=== PATIENT | male | born 1950 | race Caucasian/White ===

== ENCOUNTER 2024-04-08 14:25 | Inpatient (IN) | payer OTHER, SELFPAY ==
[2024-04-08] VITALS (27 sets, daily range): BP systolic 95–138; BP diastolic 48–69; BMI 32.2; BMI 27.7
[2024-04-08 13:11] LABS: % Basophils 0.1 % (0-2); % Immature Granulocytes 0.7 % (0-0.5); % Lymphocytes 1.4 % (20.5-51.1); % Monocytes 7.2 % (1.7-9.3); % Neutrophils 90.6 % (42.2-75.2); Absolute Immature Granulocytes 0.1 10^3/uL (0-0.05); Absolute Lymphocytes 0.3 10^3/uL (1.2-3.4); Absolute Monocytes 1.5 10^3/uL (0.1-0.6); Absolute Neutrophils 19.3 10^3/uL (1.4-6.5); Hematocrit 48.8 % (39.0-52.0); Mean Corp Hgb Conc. 32.8 g/dL (33.0-37.0); Mean Corpuscular Volume 94.6 fL (80.0-94.0); Nucleated Red Blood Cells % 0 % (-); Platelet Count 304 10^3/uL (130-400); Red Blood Cell Count 5.16 10^6/uL (4.70-6.10); Red Cell Dist. Width 12.4 % (11.5-14.5); White Blood Cell Count 21.3 10^3/uL (4.8-10.8)
--- NOTE | 2024-04-08 13:18 | ED.GENMED ---
History of Present Illness
General
Chief Complaint: Chest Pain
Source: patient and ambulance crew
Exam Limitations: none
Time Seen by Provider: 04/08/24 12:48
Nursing documentation reviewed up to this point in time: agreed with
History of Present Illness
History of Present Illness:
Late entry seen immediately upon presentation call from EMS concern for prehospital STEMI alert from local group home patient with a history of diabetes, with insulin pump apparently could not use his pump while in group home because his run with the phone,
sounds like he was placed on sliding scale blood sugars also been out of control 2 days ago had 12 episodes of nausea vomiting and chest pain with high blood sugar, today blood sugar was high had chest pain lower abdominal pain, EMS was called had
EKG which was sent to be reviewed, looks like ST segment elevations inferiorly with reciprocal ST depressions anteriorly versus a primarily posterior AK pattern no history of CAD
Past History
Past History
ED Past Medical History: IDDM
ED Past Surgical History: Other (Lower extremity stents, previously on Plavix)
Social History
Tobacco: Smoker
Alcohol: None
Drug: None
Living: care home
Employment: Not employed
Review of Systems
Review of Systems
All Other Systems: Not applicable
Constitutional: Reports fatigue
Respiratory: Reports trouble breathing
Cardiac: Reports chest pain
ABD/GI: Reports abdominal pain, nausea and vomiting
Musculoskeletal: Reports no symptoms
Neurological: Reports dizzy and weakness
Hematologic/Lymphatic: Reports no symptoms
Phy Exam
Physical Exam
Physical Exam:
Physical Exam
General: Tachypneic ill-appearing male
Neck: Dry lip
Heart: Tachycardia
Lungs: no acute respiratory distress. clear bilaterally
Abdomen: Tender in the abdomen right side
Neuro: alert and oriented. no focal neurological deficits
Skin: no rash
Psychiatric: cooperative
Extremities: no edema
Scores
Heart Score for Chest Pain Patients
STEMI patient?: Yes
Course
Orders/Labs/Results
Orders:
Orders
04/08/24 Lunch
NPO
Allow oral meds: Yes
Allow clear liquids: No
04/08/24 12:37
Electrocardiogram (*1) Urgent
Reason for Study: Chest Pain
EKG- Treatment ONCE
04/08/24 12:38
CXR Port [CR Chest Portable - 1 View] Urgent
Comment:
Reason For Exam: chest pain
Reason Study Needs to be Portable: Unable to Transport
04/08/24 12:41
B-Hydroxybutyrate Urgent
Complete Blood Count/With Diff Urgent
Comprehensive Metabolic Panel Urgent
Troponin I Urgent
04/08/24 12:44
PTT Urgent
Prothrombin Time Urgent
04/08/24 12:48
CT Abd/pelvis W Iv Cont Stat
Comment:
Reason For Exam: rlq pain stat no labs
04/08/24 13:09
Fentanyl Citrate/Pf [Sublimaze] 100 mcg .ROUTE .[facility]-MED ONE
Midazolam HCl [Versed] 2 mg .ROUTE .[facility]-MED ONE
04/08/24 13:10
Heparin 10,000 units .ROUTE .[facility]-MED ONE
04/08/24 13:16
Venous Blood Gas Urgent
%Oxygen/Room Air: ra
04/08/24 13:40
Calcium Gluconate 2,000 mg IV NOW STA
04/08/24 13:43
Insulin Human Regular [Novolin R] 10 units Syringe [Syringe Non-Pump] 0 ml IV NOW
04/08/24 13:45
0.9% Sodium Chloride 1000 ml [Nss] 1,000 ml IV PER PROTOCOL
Infusion rate in mL/kg/hr:: 1.5
Infusion rate in mL/hr:: 132
Duration of infusion (hours):: 3
Activity As Directed
Activity Level: Bedrest
Comment: refer to hemostasis device used for bedrest duration, then ambulate ad daya
Ic Engineer Procedure As Directed
Cardiac Cath Procedure: cardiac catheterization
Femoral Artery Hemostasis Method As Directed
Procedure performed:: Cardiac Catheterization
Type of femoral hemostasis method used:: Internal Closure Device
Duration of bedrest (hours):: 3
Call provider if:: hematoma present after hemostasis achieved
Head of Bed-Restrictions As Directed
Comment: may elevate head of bed 30 degrees
Notify MD As Directed
Notify physician if: immediately for chest pain or bleeding from access site(s)
Site Checks As Directed
Check access site for bleeding/hematoma: Yes
Comment: on arrival, Q15min x4, Q30min x2, Q1 hr x2, Q2 hr x2, Q4 hr or per
protocol
Vascular Checks As Directed
Location: distal to access site - pulse check
Frequency: Other
Comment: on arrival, Q15min x4, Q30min x2, Q1 hr x2, Q2 hr x2, Q4 hr or per protocol
Vital Signs As Directed
Frequency: Other
Additional Instructions:: on arrival, Q15min x4, Q30min x2, Q1 hr x2, Q2 hr x2, then Q4 hr or per unit
protocol
04/08/24 13:49
Insulin Aspart [NOVOLOG vial] 100 units .ROUTE .[facility]
04/08/24 13:50
Admit Patient As Directed
Co-Sign Provider:
Level of Care: Inpatient admission
Assign to:: ICU
Physician / Group: Hospitalist
Diagnosis: DKA
Reason for Hospitalization: DKA
Expected length of stay greater than two midnights?: Yes
ELOS- Estimated Length of Stay in days: 4
I certify the patient meets the requirements for IP care: Yes
04/08/24 13:52
HOSPITALIST CONSULT Urgent
Consulting Provider: [place]
Was physician already notified: Yes
NEPHROLOGY CONSULT Urgent
Consulting Provider: Marlen Hernandez
Was physician already notified: Yes
DX Deep Vein Thrombosis Video Routine
04/08/24 13:53
Brilliandeer Lopper Consult Urgent
Consulting Provider: Juan Martini
Was physician already notified: Yes
04/08/24 18:00
Enoxaparin Sodium [Lovenox] 40 mg SC QPM
Abnormal Lab Results
04/08/24 04/08/24
12:41 12:44
WBC 21.3 H 10^3/uL
(4.8-10.8)
MCV 94.6 H fL
(80.0-94.0)
MCHC 32.8 L g/dL
(33.0-37.0)
MPV 11.0 H fL
(7.4-10.4)
Abs Immat Gran (auto) 0.1 H 10^3/uL
(0-0.05)
Absolute Neuts (auto) 19.3 H 10^3/uL
(1.4-6.5)
Absolute Lymphs (auto) 0.3 L 10^3/uL
(1.2-3.4)
Absolute Monos (auto) 1.5 H 10^3/uL
(0.1-0.6)
Immature Gran % 0.7 H %
(0-0.5)
Neutrophils % 90.6 H %
(42.2-75.2)
Lymphocytes % 1.4 L %
(20.5-51.1)
PT 22.3 H Sec
(11.4-14.6)
APTT 36.0 H Sec
(23.4-35.0)
Sodium 125 L mmol/L
(135-145)
Potassium 7.4 H* mmol/L
(3.5-5.1)
Chloride 89 L mmol/L
(98-107)
Carbon Dioxide < 5 L* mmol/L
(22-30)
BUN 59 H mg/dl
(9-20)
Creatinine 2.9 H mg/dL
(0.7-1.3)
Glucose 810 H* mg/dl
(70-99)
Total Bilirubin 1.4 H mg/dl
(0.2-1.3)
Troponin I 0.247 H* ng/ml
B-Hydroxybutyrate > 9 H mmol/L
(0.02-0.27)
04/08/24 12:41
04/08/24 12:41
Vital Signs
Initial and Last Documented VS:
Initial Vital Signs
Pulse Resp Pulse Ox
121 18 96
04/08/24 12:40 04/08/24 12:40 04/08/24 12:40
Last Documented Vital Signs
Pulse Resp Pulse Ox
121 18 96
04/08/24 12:40 04/08/24 12:40 04/08/24 12:40
MDM/Problems Addressed
Differential Diagnosis Includes:
STEMI delayed presentation AK DKA intra-abdominal process infection
MDM/Problems Addressed:
Chest pain nausea vomiting abdominal
Chronic conditions affecting care: DM
Acute Exacerbation and/or Progression of Chronic Illness: DM
*EKG
Interpreted by ED Provider?: Yes
Interpretation: abnormal
Comparison EKG: no comparison EKG present
Heart Rate: 118
Rate: normal
Rhythm: sinus
Ischemia: ST elevation
*Draw Press Operator Interpretation
Rate: tachycardiac
Interpretation: abnormal
Heart Rate: 118
Rhythm: sinus
*Critical Care Note
Total Time (30-74mins, 75-104mins- exclusive of procedures): 30
Update Note
Update Note:
Update, CT scan report noted labs are noted patient is in the Ic Engineer, looks like DKA with hyper kalemia
ED Attending Note
-
Portions of this chart may have been created with voice recognition software.� Occasional wrong word or��sound alike� substitutions may have occurred due to the inherent limitations of voice recognition software.
Discharge Plan
Departure
Patient Disposition: Admit
Date of Disposition: 04/08/24
Time of Disposition: 13:54
Admit to: CVICU
Presentation/result/management discussed w/ accepting MD/DO: Hospitalist
Condition: Fair
Discharge Problem:
DKA
Referrals:
[facility] [Family Provider] -
Interventions
Interventions:
*Risk Screen - Suicide Last Done: 04/08/24 13:00
*General Assessment Last Done: 04/08/24 13:00
*Neglect/Abuse Screening Last Done: 04/08/24 13:00
ED- Fall Risk Assessment Last Done: 04/08/24 13:00
*ED COVID-19 Vaccine History Last Done: 04/08/24 13:00
ED- Cardiac Assessment Last Done: 04/08/24 13:00
Discharge Date and Time
Print Language: EQUATORIAL GUINEAN
[2024-04-08 13:20] LABS: INR 1.98; PT 22.3 Sec (11.4-14.6)
[2024-04-08 13:39] LABS: AST (SGOT) 43 U/L (17-59); Albumin 4.5 g/dl (3.5-5.0); Alkaline Phosphatase 112 U/L (38-126); Blood Urea Nitrogen 59 mg/dl (9-20); Carbon Dioxide < 5 mmol/L (22-30); Chloride 89 mmol/L (98-107); Estimated Creatinine Clearance 24 ml/min; Potassium 7.4 mmol/L (3.5-5.1); Sodium 125 mmol/L (135-145); Total Bilirubin 1.4 mg/dl (0.2-1.3); Total Protein 6.5 g/dl (6.3-8.2); eGFR 22.42
[2024-04-08 13:40] LABS: Troponin I 0.247 ng/ml
[2024-04-08 13:41] LABS: ALT (SGPT) 45 U/L (0-50)
[2024-04-08 13:42] LABS: Glucose 810 mg/dl (70-99)
[2024-04-08 13:50] LABS: B-Hydroxybutyrate > 9 mmol/L (0.02-0.27)
--- NOTE | 2024-04-08 14:01 | CON.CAR ---
Addendum entered and electronically signed by Hadley Fontana DO 04/08/24 14:19:
Cardiac catheterization shows no immediately occlusive CAD.
K+ = 7.4, likely source of EKG changes.
CT abdomen/pelvis shows no acute obstruction.
Ca++ 2g + insulin R 10 units given in culture media laboratory assistant.
Lokelma ordered.
Will admit to hospitalist, ICU level care.
Consult pulm/critical care.
Mcdonald catheter attempted in culture media laboratory assistant, unsuccessful.
Bladder scan for residual.
If bladder scan is positive, consider urology for catheter placement.
Original Note:
Consultation
Consultation Request
Date/Time Consultation Requested: 04/08/2024; 12:28
Date/Time Consultation Performed: 04/08/2024; 12:29
Requesting Provider: Jose Dee D.O.
Performing Provider: Hadley Fontana D.O.
Reason for Consultation: Abnormal EKG.
Medical History
-
Chief Complaint: Transfer from [facility] for chest pain, nausea, vomiting.
History of Present Illness:
Ian Delcid is a 73 y/o male prisoner without prior contact at and a history of IDDM transferred from [facility] with two days of nausea, vomiting, chest pain (two days ago) and difficulty controlling glucose in the absence of his insulin pump. The
patient was reincarcerated for a parole violation. He reports he was previously on an insulin pump, but this has been confiscated. Two days ago, he began to feel poorly, including chest pain, nausea and vomiting. He reports bradford SSI has been
inadequate in controlling his glucose and that his glucoses have been very high. He denied any consistent chest pain in the past 24 hours, then admitted to some mild chest pain 2 hours prior to presentation. Because of his persistent symptoms, EMS
was called. EMS EKG showed non-specific ST elevations in the inferior leads with deep ST depressions in the anteroseptal precordial leads, concerning for inferoposterior infarct. Labs are initially consistent with DKA.
In the ER, the patient reported worsening abdominal pain. His lower abdomen was tender to palpation. CT scan was performed which showed a distended bladder but no acute cause of his abdominal pain. Given his DKA, history of PAD and IDDM with EKG
changes, I am concerned for ACS with continued chest pain 2 hours prior to presentation.
Past Medical History
Past Medical History: IDDM and Other (PAD)
Social History
Living: [facility]
Family History
Family History: Reviewed & Not Pertinent
Allergies / Home Medications
Allergy/AdvReac Type Severity Reaction Status Date / Time
lactose Allergy Unknown Unknown Verified 04/08/24 12:40
Review of Systems
-
History Source: Patient and Other ([facility] personnel.)
Constitutional: No Symptoms
EENT: Other (Dry mouth.)
Respiratory: No Symptoms
Cardiac: Chest Pain (Occured two days prior to admission.)
Abdomen/GI: Abdominal Pain, Nausea and Vomiting
: No Symptoms
Musculoskeletal: No Symptoms
Skin: No Symptoms
Neurological: No Symptoms
Physical Exam
Vital Signs
Pulse Resp Pulse Ox
121 18 96
04/08/24 12:40 04/08/24 12:40 04/08/24 12:40
Lab Results
04/08/24 12:41
04/08/24 12:41
Troponin I 0.247 ng/ml H* 04/08/24 12:41
Physical Exam
General: Well Developed, Well Nourished and Respiratory Distress
HEENT: Normocephalic, Anicteric and Other (Dry mucous membranes.)
Respiratory: Clear
Cardiac: S1/S2 and Regular Rhythm
Breast: Deferred by me
GI: Soft, Normal Bowel Sounds, Tender and Distended (Lower, suprapubic.)
Rectal: Deferred by Provider
Musculoskeletal: No Clubbing, No Cyanosis and No Edema
Skin: Warm and Dry
Neuro: AO x 3
Hematologic/Lymphatic: No Lymphadenopathy
Impression / Plan
-
Impression/Plan: 73 y/o male prisoner with PAD, IDDM now complicated by DKA and chest pain with abnormal EKG concerning for inferoposterior STEMI.
#Abnormal EKG
-Acute.
-No prior EKG for comparison.
-Given his concerning symptoms, we must assume this is a possible ACS.
-Plan for immediate coronary angiography for clarification of coronary anatomy.
-Consent is signed an on the chart.
#IDDM/DKA
-Acute on chronic.
-Volume rescusitation.
-Insulin gtt.
-Electrolytes.
#Bladder distention
-Acute.
-Evacuate bladder.
-Urology consult if needed.
Data Reviewed
-
EKG: Tracing Personally Visualized and interpreted and Report Reviewed by me
CT Scan: Image Personally Visualized and interpreted and Report Reviewed by me
[2024-04-08 14:09] LABS: Glucose - Point of Care > 600 mg/dl (70-99)
--- NOTE | 2024-04-08 14:19 | ITS.CL.CATH ---
Textile Machinery Sales Representative - Catheterization
Cardiac Catheterization
Procedure Report:
CARDIAC CATHETERIZATION REPORT
Date of Procedure: 04/08/2024
Referring: Jose Dee D.O.
INDICATION: Possible ST elevation myocardial infarction.
PROCEDURE:
1. Left catheterization
2. Coronary angiography.
3. Left ventriculography.
ACCESS:
6 Armenian right common femoral artery using a modified Seldinger technique with a micropuncture kit under ultrasound guidance.
CATHETERS:
1. 5 Armenian JR4.
2. 5 Armenian JL 4.
3. 5 Armenian angled pigtail.
HEMODYNAMIC DATA
Weight (kg): 86.2
AO (s/d/x, mmHg): 126/59/87
LV (s/x mmHg): 140/20 (A wave to 30)
LEFT VENTRICULOGRAPHY: Performed in an MONZON projection. Normal left ventricular size with preserved to hyperdynamic systolic function. There were no regional wall motion abnormalities. Left ventricular ejection fraction estimated at 65-70%.
There is no mitral regurgitation. There is no aortic valve insufficiency. The aortic root and visualized ascending and descending aorta appear normal.
CORONARY ANGIOGRAPHY
Dominance: Right.
Left Main: Normal size, bifurcating vessel. There is no coronary artery disease.
LAD: Normal size vessel with a 60% lesion in the proximal vessel and a 60% lesion in the mid vessel.
Ramus: Congenitally absent.
Circumflex: Large size, nondominant vessel giving rise to 1 large obtuse marginal. The obtuse marginal subsequently bifurcates into 2 smaller branches. There are luminal irregularities throughout the circumflex ostium.
RCA: Normal size, dominant vessel. The RPDA is a relatively small, moderately diffuse vessel.
INTERVENTION(S)
None.
Closure Device: 6 Armenian Angio-Seal.
Radiation (mGy): 442.51
DAP (cm2.Gy): 41.31
Fluoroscopy time (minutes): 2.5
Sedation time (minutes): 18
CONCLUSIONS
1. Right dominant circulation with moderate diffuse disease of the RPDA, luminal irregularities throughout the circumflex ostium and tandem 60% lesions in the proximal LAD and mid LAD but no evidence of acute occlusion.
2. Normal left ventricular size and systolic function without regional wall motion abnormality. LV ejection fraction is 65-70%.
3. Moderately elevated filling pressures (LVEDP = 20 mmHg at 86.2 kg) with evidence of diastolic dysfunction (A wave to 30 mmHg).
4. Diabetic ketoacidosis with hyperkalemia, likely responsible for EKG changes.
RECOMMENDATIONS:
1. Expectant management after cardiac catheterization via right common femoral approach.
2. Limited weight bearing for one week.
3. Correction of underlying metabolic abnormalities. Calcium and insulin ordered in the Textile Machinery Sales Representative.
4. Lokelma has been ordered for hyperkalemia.
5. The patient is appropriately volume resuscitated.
6. Echocardiogram ordered and pending.
7. Aggressive risk factor modification. Check hemoglobin A1c, fasting lipid profile.
Copy to: [facility].
Hadley Fontana, DO, FACC, FACP
--- NOTE | 2024-04-08 14:26 | CON.INTV ---
Consultation
Consultation Request
Date/Time Consultation Requested: 04/08/2024
Date/Time Consultation Performed: 04/08/2024
Performing Provider: Dr. Juan Mcfarland
Reason for Consultation: Diabetes ketoacidosis
Medical History
-
History of Present Illness:
73-year-old male who is a type 1 diabetes with an insulin pump, arrived from long-term, apparently has 2 days that was not able to use his insulin pump as it ran through his cell phone. He was placed on some sliding scale and diet blood sugars were
uncontrolled for 2 days. Patient developed intractable nausea and vomiting with chest pain. He was found to be hyperglycemic. Upon arrival to the emergency room he also complained of abdominal pain EKG showed abnormalities and troponins were
positive. He was emergently taken to the emergency room for evaluation, underwent catheterization that showed normal coronary artery disease.
Patient was hyperkalemic, creatinine was elevated, blood sugar in the 800s.
He was transferred to the critical care unit for further care. Initial hyperkalemia management was started in the Certified Registered Nurse Practitioner
Past Medical History
Past Medical History: Other (See assessment and plan section)
Social History
Tobacco: Smoker
Alcohol: None
Drug: None
Living: Custodial
Employment: Not Employed
Family History
Family History: Reviewed & Not Pertinent
Allergies / Home Medications
Allergies
Allergy/AdvReac Type Severity Reaction Status Date / Time
lactose Allergy Unknown Unknown Verified 04/08/24 12:40
Review of Systems
-
History Source: Patient
All other systems: Negative unless noted
Vitals / Labs / Diagnostic Testing
Vital Signs
Pulse Resp Pulse Ox
121 18 96
04/08/24 12:40 04/08/24 12:40 04/08/24 12:40
Lab Data
04/08/24 12:41
Laboratory Results
04/08/24
12:44
PT 22.3 H
INR 1.98
APTT 36.0 H
Diagnostic Testing:
Physical Exam
-
HEENT: Normocephalic
Cardiovascular: S1/S2
Respiratory: Clear and Non-Labored Respirations
GI: Soft and Non Distended
Neurology: Awake, Alert, AO x 3, No Motor Deficits and Other (Following commands)
Skin: Warm
General: Respiratory Distress (None)
Assessment
-
73-year-old man with type 1 diabetes. Admitted from long-term due to nausea and vomiting. Currently was not able to use his insulin pump for the last 2 days. He was only given insulin sliding scale. Vomited around 12 times. Also complaining of
chest pain. Abnormal EKG was noted with significant hyperkalemia. Positive troponins also noted. Taken to the catheterization 04/08/2024 and showed no acute coronary disease. Transferred to the critical care unit for metabolic derangement
management.
Diabetes ketoacidosis-unable to use insulin pump at present.
Elevated [id number]
Status post catheterization 04/08/2024: No significant coronary artery disease
Severe hyperkalemia with EKG changes were explained above
Hyponatremia secondary to above
Acute kidney injury likely volume depletion
Leukocytosis likely reactive
Increased bilirubin
CT abdomen pelvis unremarkable 04/08/2024
Conditions present prior admission:
Type 1 diabetes on an insulin pump
Tobacco abuse
Assessment and plan:
Critically ill with diabetes ketoacidosis with severe hyperkalemia and acute kidney injury. Was not able to use his insulin pump.
-
Start DKA protocol
Insulin drip, DKA protocol
Every hour Accu-Cheks.
Every 2 BMPs
IV fluids with normal saline 250 cc an hour. Will adjust per protocol depending on blood sugars.
Will place a Mcdonald
Eventually will need diabetes nurse practitioner consultation.
-
Hyperkalemia
Status post IV insulin and calcium gluconate
Given significant metabolic acidosis will give 1 amp of bicarbonate.
Repeat BMP now.
Depending on acidosis may need to transition to bicarbonate drip.
-
Acute kidney injury, no baseline to compare. Likely volume depletion
Continue IV fluid with normal saline.
-
Positive troponins and abnormal EKG likely secondary to above
Status post catheterization without significant coronary disease.
Cardiology correspondence reviewed.
-
N.p.o. for now
Head of the bed elevation
-
DVT prophylaxis with Lovenox
-
Critical care statement: A total of 38 minutes of critical care time was provided for this patient today. This includes management of unstable vital signs, evaluation of the patient at bedside, reviewing the patient's pertinent medical records
including ventilator settings, arterial blood gases, radiographs, microbiology, laboratory evaluations and discussion with primary team, critical care nursing, and respiratory therapy.
[2024-04-08 14:36] LABS: Venous Blood Gas B.E. -21.1 mmol/L (-4 to +4); Venous Blood Gas HCO3 6.8 mmol/L (22-27); Venous Blood Gas O2 Sat % 83.8 %; Venous Blood Gas pCO2 22 mmHg (35-48); Venous Blood Gas pO2 56 mmHg (30-50)
--- NOTE | 2024-04-08 14:50 | HPS.HSE ---
Addendum entered and electronically signed by Jose Armando Soni MD 04/11/24 13:21:
Correction, patient has type 1 diabetes, not type II.
Original Note:
Family Physician
-
Family Physician: [facility]. [facility]
Chief Complaint
-
Chest pain
History of Present Illness
73-year-old male with a past medical history of type 2 diabetes on insulin pump, hyperlipidemia, peripheral artery disease, and osteoporosis was sent from [facility] for possible ST elevation myocardial infarction. At that time, he did have nausea,
vomiting, chest pain. EKG showed possible ST elevation in inferior leads. Patient was taken to cardiac catheterization emergently, shows nonobstructive coronary artery disease. He was found to have severe diabetic ketoacidosis. Currently, his
chest pain and abdominal pain has resolved. Shortness of breath also resolved. No fever, no chills.
Medical History
Past Medical History
Past Medical History: Reports Other (Type 2 diabetes, hyperlipidemia, osteoporosis, peripheral artery disease, testicular cancer status post surgery)
Past Surgical History: Reports Other (Bilateral orchiectomy, right leg stent)
Social History
Tobacco: Former Smoker
Alcohol: Daily
Drug: None
Family History
Family History: Not pertinent
Allergies / Home Medications
Allergies reflects when Allergies were last updated in [facility].
Home Medications with original date entered in [facility]
Allergy/Medication List:
Allergies
Allergy/AdvReac Type Severity Reaction Status Date / Time
lactose Allergy Unknown Unknown Verified 04/08/24 12:40
Review of Systems
-
A 12 point ROS was completed and negative except as noted: Yes
Physical Exam
Vital Signs
Vital Signs
Pulse Resp Pulse Ox
121 18 96
04/08/24 12:40 04/08/24 12:40 04/08/24 12:40
Physical Exam
General: No Apparent Distress
HEENT: NormoCephalic, Anicteric and Moist mucous membranes
Respiratory: Clear
Cardiac: S1/S2, Regular Rhythm and Tachycardia
GI: Soft, Non Tender, Non Distended and Normal Bowel Sounds
Musculoskeletal: No Clubbing, No Cyanosis and No Edema
Skin: Warm and Dry
Neuro: Awake, Alert and Oriented
Psych: Calm
Laboratory Results
-
04/08/24 12:41
Laboratory Results
PT 22.3 Sec (11.4-14.6) H 04/08/24 12:44
INR 1.98 04/08/24 12:44
APTT 36.0 Sec (23.4-35.0) H 04/08/24 12:44
Total Bilirubin 1.4 mg/dl (0.2-1.3) H 04/08/24 12:41
AST 43 U/L (17-59) 04/08/24 12:41
ALT 45 U/L (0-50) 04/08/24 12:41
Alkaline Phosphatase 112 U/L (38-126) 04/08/24 12:41
Troponin I 0.247 ng/ml H* 04/08/24 12:41
Impression/Plan
-
HPI: 73-year-old male with a past medical history of type 2 diabetes on insulin pump, hyperlipidemia, peripheral artery disease, and osteoporosis was sent from [facility] for possible ST elevation myocardial infarction. At that time, he did have nausea,
vomiting, chest pain. EKG showed possible ST elevation in inferior leads. Patient was taken to cardiac catheterization emergently, shows nonobstructive coronary artery disease. He was found to have severe diabetic ketoacidosis. Currently, his
chest pain and abdominal pain has resolved. Shortness of breath also resolved. No fever, no chills.
#Diabetic ketoacidosis
Consult core fitter, insulin drip, IV fluids
Serial BMPs
#Leukocytosis
Patient is afebrile, no signs or symptoms of infection
Likely reactive, monitor
#Systemic inflammatory response syndrome with leukocytosis and tachycardia
Due to DKA, monitor
#Chest pain
Appreciate cardiology input, EKG changes likely caused by DKA
04/08/2024 cardiac catheterization shows nonobstructive coronary artery disease
Check echocardiogram
#Hyperkalemia
Should improve with IV insulin
#Acute kidney injury
Due to dehydration from DKA
Continue IVFs, avoid nephrotoxic drugs/NSAIDs, trend creatinine
#Pseudohyponatremia
From hyperglycemia, trend sodium
#Peripheral artery disease
Start aspirin, statin
DVT prophylaxis�subcu Lovenox
Full code
Total time spent to see the patient on the floor, examine the patient, review data and lab results, discuss treatment plan with patient, nursing staff around 76 minutes.
[2024-04-08 14:59] LABS: Glucose - Point of Care > 600 mg/dl (70-99)
[2024-04-08] MEDS: NOVOLIN R INSULIN INFUSION 100 IV (15:23)
[2024-04-08] MEDS: CALCIUM GLUCONATE 100 IV (15:23)
[2024-04-08] MEDS: SODIUM BICARBONATE 50 MEQ IV (15:25)
[2024-04-08] MEDS: NSS 1000 IV ×2 (15:26→19:22)
--- NOTE | 2024-04-08 15:26 | W.CON.NEPH ---
Consultation
-
Date/Time Consultation Requested: 04/08/2024 13:52PM
Date/Time Consultation Performed: 04/08/2024 3:27PM
Requesting Provider: Jose Dee
Performing Provider: Marlen Hernandez
Reason for Consultation: GYPSY, electrolyte derangements
Medical History
-
Chief Complaint: GYPSY, electrolyte derangements
History of Present Illness:
Mr. Delcid is a 73YOM with PMH of T1DM who arrived from jail, new to our system. He was without his insulin pump for a few days and his blood sugars were uncontrolled. He developed nausea/vomiting with chest pain (now resolved). He was taken to
pathology lab technician due to changes noted on EKG but was not found to have coronary artery disease. Labs came back while he was in the pathology lab technician and were notable for hyponatremia (normalizes when corrected for glucose), hyperK, severe acidosis, and elevated Cr
with blood sugar in the 800s. The patient is lethargic today and not able to answer many questions. He states that he has been urinating quite a bit. He is currently in the ICU for DKA management.
Past Medical History
Type 1 Diabetes
Tobacco abuse
Social History
Tobacco: Smoker
Alcohol: None
Drug: None
Personal: Single
Living: [place]
Employment: Not Employed
Family History
Family History: Not Pertinent
Allergies / Home Medications
Allergy/AdvReac Type Severity Reaction Status Date / Time
lactose Allergy Unknown Unknown Verified 04/08/24 12:40
Review of Systems
-
Unable to obtain full review of systems at this time due to: Other (patient lethargic)
History Source: Patient
All other systems: Negative unless noted
Constitutional: Fatigue
: Frequency and Urgency
Physical Exam
Vital Signs
Vital Signs
Pulse Resp Pulse Ox
121 18 96
04/08/24 12:40 04/08/24 12:40 04/08/24 12:40
Lab Results
WBC 21.3 10^3/uL (4.8-10.8) H 04/08/24 12:41
RBC 5.16 10^6/uL (4.70-6.10) 04/08/24 12:41
Hgb 16.0 g/dL (13.0-18.0) 04/08/24 12:41
Hct 48.8 % (39.0-52.0) 04/08/24 12:41
Plt Count 304 10^3/uL (130-400) 04/08/24 12:41
eGFR 22.42 04/08/24 12:41
Albumin 4.5 g/dl (3.5-5.0) 04/08/24 12:41
Physical Exam
General: AOx3 and Other (falls asleep quickly)
HEENT: PERRL, EOMI, Anicteric, Conjunctivae Clear, Ear/Nose Intact, Hearing Normal, Oropharynx Clear/Moist (dry mucous membranes), Dentition Intact, Facial Symmetry, Neck Supple, Trachea Midline, No JVD and No Thyromegaly
Respiratory: Clear, Normal Excursion and Nonlabored Respirations
Cardiac: S1/S2, Regular Rate/Rhythm and No Edema
Breast: N/A
Abdomen: Soft, Nontender, Nondistended and Normal Bowel Sounds
Rectal: Deferred by Provider
Genito-urinary: No Costovertebral Tender, Clear Urine and Other (Mcdonald in place)
Musculoskeletal: No Clubbing, No Cyanosis and No Edema
Skin: No Rash, Warm, Dry, No Clubbing, No Cyanosis and Other (dry mucous membranes)
Neuro: Nonfocal/Grossly Intact and Other (lethargic)
Psych: Mood/afflect pleasant and Insight/judgement good
Data Reviewed
-
CT Scan: Report Reviewed by me (no evidence of obstruction, abscess, nephrolithiasis or hydronephrosis)
Labs: Labs Reviewed by me, Discussed with Physician, Discussed with Nurse and Discussed with Patient
Old Records: Requested
Assessment/Plan
-
Assessment:
HAGMA
GYPSY
DKA
hyperkalemia
hypovolemia
Plan:
HyperK
- agree with calcium gluconate
- insulin gtt
- agree with 1 amp bicarb that was given
- please check K q2 hours
GYPSY
- unclear what the patient's baselien Cr is
- likely pre-renal disease
- please trend Cr as able
- avoid further nephrotoxic agents
HAGMA
- will correct with insulin
- insulin gtt initiated per ICU
- agree with amp of bicarb as able
Hypovolemia
- agree with normal saline gtt
- please closely monitor I/Os
Critical care time 31 minutes
[2024-04-08 15:31] LABS: Glucose - Point of Care > 600 mg/dl (70-99)
[2024-04-08 16:08] LABS: Blood Urea Nitrogen 66 mg/dl (9-20); Calcium 9.3 mg/dl (8.4-10.2); Carbon Dioxide 6 mmol/L (22-30); Chloride 94 mmol/L (98-107); Estimated Creatinine Clearance 28 ml/min; Magnesium 2.1 mg/dl (1.6-2.3); Potassium 5.5 mmol/L (3.5-5.1); Sodium 127 mmol/L (135-145)
--- NOTE | 2024-04-08 16:09 | PTCARENOTE ---
Patient admitted from optical laboratory technician. Regular insulin drip, IVF, Calcium gluconate, and bicarb started. Labs sent. Patient presents as assessed. Urinary catheter placed for urinary retention, some trauma at urethra present from previous attempts in cath
lab. Patient offers no complaints.
[2024-04-08 16:21] LABS: Glucose 646 mg/dl (70-99)
[2024-04-08 16:25] LABS: Glucose - Point of Care > 600 mg/dl (70-99)
--- NOTE | 2024-04-08 16:28 | W.PN.UPDATE ---
Update Note
Progress Note Update
Potassium improving
Continue with IV fluid resuscitation
Insulin drip
Continues to have metabolic acidosis, if acidosis continues to be severe with bicarb < 10 will consider bicarbonate drip at that time. .
For now continue with above care.
[2024-04-08 17:11] LABS: Blood Urea Nitrogen 67 mg/dl (9-20); Carbon Dioxide 8 mmol/L (22-30); Chloride 95 mmol/L (98-107); Estimated Creatinine Clearance 28 ml/min; Glucose 622 mg/dl (70-99); Potassium 5.1 mmol/L (3.5-5.1); Sodium 128 mmol/L (135-145)
[2024-04-08] MEDS: LOVENOX 40 MG SC (17:17)
[2024-04-08 17:28] LABS: Glucose - Point of Care 567 mg/dl (70-99)
[2024-04-08] MEDS: LIPITOR 40 MG PO (17:28)
[2024-04-08] MEDS: LOW STRENGTH ASPIRIN 81 MG PO (17:28)
[2024-04-08 17:54] LABS: Blood Urea Nitrogen 67 mg/dl (9-20); Calcium 10.1 mg/dl (8.4-10.2); Carbon Dioxide 12 mmol/L (22-30); Chloride 97 mmol/L (98-107); Estimated Creatinine Clearance 29 ml/min; Glucose 547 mg/dl (70-99); Potassium 4.8 mmol/L (3.5-5.1); Sodium 129 mmol/L (135-145); eGFR 28.14
[2024-04-08 18:34] LABS: Glucose - Point of Care 448 mg/dl (70-99)
[2024-04-08 18:54] LABS: Glucose 444 mg/dl (70-99)
[2024-04-08 19:20] LABS: Glucose - Point of Care 411 mg/dl (70-99)
--- NOTE | 2024-04-08 19:34 | PTCARENOTE ---
Assumed care of patient approx 1899.
Managing high anion gap metabolic acidosis.
AAOx4, pupils =/R 3 mm, no neurological deficits noted.
Remains sinus tach w/ RBBB, normotensive, normothermic, no edema.
Urine o/p WNL, cont. to trend.
Remains on insulin gtt, and fluid resuscitation w/ NSS.
Cont. to trend q1 accuchecks, Q4 BMP, Q2 K+.
Pt. offers no complaints of pain at this time.
[2024-04-08 20:17] LABS: Glucose - Point of Care 442 mg/dl (70-99)
[2024-04-08 21:05] LABS: Glucose - Point of Care 371 mg/dl (70-99)
[2024-04-08] MEDS: ZOFRAN 4 MG IV (21:36)
[2024-04-08 22:09] LABS: Blood Urea Nitrogen 70 mg/dl (9-20); Calcium 10.3 mg/dl (8.4-10.2); Carbon Dioxide 19 mmol/L (22-30); Chloride 104 mmol/L (98-107); Estimated Creatinine Clearance 37 ml/min; Glucose 281 mg/dl (70-99); Sodium 133 mmol/L (135-145); eGFR 37.25
[2024-04-08 22:12] LABS: Glucose - Point of Care 264 mg/dl (70-99)
[2024-04-08] MEDS: D5/0.45%NSS with KCL 20 MEQ 1000 IV (22:56)
[2024-04-08 23:10] LABS: Glucose - Point of Care 270 mg/dl (70-99)
[2024-04-09] VITALS (24 sets, daily range): BP systolic 93–151; BP diastolic 57–81; BMI 28.0
[2024-04-09 00:06] LABS: Glucose - Point of Care 224 mg/dl (70-99)
--- NOTE | 2024-04-09 00:09 | PTCARENOTE ---
anion gap closed 2200 ---> 10.
glucose under 250, NA+ corrected, 0.9 gtt d/c replaced w/ d5/0.45 20 meQ.
remains on insulin gtt, see titration flowsheet.
Offers no complaints of chest pain. NSR 1st degree block noted on pr measurement, 12 lead from prior revealed RBBB.
Zofran given x1 for mild nausea, pt. reports it has since resolved.
[2024-04-09 00:22] LABS: Potassium 4.2 mmol/L (3.5-5.1)
[2024-04-09 01:14] LABS: Glucose - Point of Care 224 mg/dl (70-99)
[2024-04-09 02:11] LABS: Glucose - Point of Care 202 mg/dl (70-99)
[2024-04-09 02:19] LABS: Blood Urea Nitrogen 63 mg/dl (9-20); Calcium 9.9 mg/dl (8.4-10.2); Carbon Dioxide 22 mmol/L (22-30); Chloride 107 mmol/L (98-107); Estimated Creatinine Clearance 41 ml/min; Glucose 194 mg/dl (70-99); Potassium 4.3 mmol/L (3.5-5.1); Sodium 136 mmol/L (135-145); eGFR 42.57
[2024-04-09 03:11] LABS: Glucose - Point of Care 230 mg/dl (70-99)
[2024-04-09] MEDS: NOVOLIN R INSULIN INFUSION 100 IV (04:18)
[2024-04-09 04:19] LABS: Glucose - Point of Care 212 mg/dl (70-99)
[2024-04-09] MEDS: D5/0.45%NSS with KCL 20 MEQ 1000 IV ×2 (04:19→10:51)
--- NOTE | 2024-04-09 04:39 | PTCARENOTE ---
pt. resting comfortably, denies any chest pain.
Remains on insulin gtt @ 3, d5/0.45/20k.
glucose levels stabilizing in low 200s.
Anion Gap remains closed, K WNL, no ecg changes HS.
[2024-04-09 05:13] LABS: Glucose - Point of Care 229 mg/dl (70-99)
[2024-04-09 06:04] LABS: Glucose - Point of Care 203 mg/dl (70-99)
[2024-04-09 06:04] LABS: Hematocrit 40.2 % (39.0-52.0); Hemoglobin 14.1 g/dL (13.0-18.0); Mean Corp Hgb Conc. 35.1 g/dL (33.0-37.0); Mean Corpuscular Hgb 30.3 pg (27.0-31.0); Mean Corpuscular Volume 86.3 fL (80.0-94.0); Mean Platelet Volume 10.6 fL (7.4-10.4); Platelet Count 232 10^3/uL (130-400); Red Blood Cell Count 4.66 10^6/uL (4.70-6.10); Red Cell Dist. Width 12.7 % (11.5-14.5)
[2024-04-09 06:38] LABS: Blood Urea Nitrogen 63 mg/dl (9-20); Calcium 9.9 mg/dl (8.4-10.2); Carbon Dioxide 21 mmol/L (22-30); Chloride 107 mmol/L (98-107); Estimated Creatinine Clearance 44 ml/min; Glucose 174 mg/dl (70-99); Phosphorus 2.4 mg/dl (2.5-4.5); Potassium 4.4 mmol/L (3.5-5.1); Sodium 137 mmol/L (135-145); eGFR 45.78
[2024-04-09 07:14] LABS: Glucose - Point of Care 189 mg/dl (70-99)
--- NOTE | 2024-04-09 07:23 | PTCARENOTE ---
Rec'd care of patient at 0700. Patient alert and oriented. NSR/ST on tele monitor. Rate in the 90-100's. RLE neurovascular checks as ordered. Right groin site dressing c/d/i. Weak pp. Lung sounds cta on RA. +BS. NPO except meds. Mcdonald in place for
urinary retention. Prema/blood tinged. Insulin gtt and IVFs infusing as ordered through peripheral INTs. Full assessment and care as charted on worklist.
[2024-04-09] MEDS: LOW STRENGTH ASPIRIN 81 MG PO (07:30)
[2024-04-09 08:14] LABS: Glucose - Point of Care 181 mg/dl (70-99)
[2024-04-09 09:12] LABS: Glucose - Point of Care 212 mg/dl (70-99)
[2024-04-09 10:09] LABS: Glucose - Point of Care 210 mg/dl (70-99)
--- NOTE | 2024-04-09 10:10 | W.PN.INTV ---
Today's Communication / Plan
Recommendations
Insulin drip continues for now
Diabetes nurse petitioner to recommend insulin regimen for discharge
Continue to follow renal function
Continue IV fluids until patient is able to take orals
Increase activity as able
Maintain ICU level until insulin drip can be discontinued.
Assessment
-
73-year-old man with type 1 diabetes. Admitted from custodial due to nausea and vomiting. Currently was not able to use his insulin pump for the last 2 days. He was only given insulin sliding scale. Vomited around 12 times. Also complaining of
chest pain. Abnormal EKG was noted with significant hyperkalemia. Positive troponins also noted. Taken to the catheterization 04/08/2024 and showed no acute coronary disease. Transferred to the critical care unit for metabolic derangement
management.
Diabetes ketoacidosis-unable to use insulin pump at present.
Elevated [id number]
Status post catheterization 04/08/2024: No significant coronary artery disease
Severe hyperkalemia with EKG changes were explained above
Hyponatremia secondary to above
Acute kidney injury likely volume depletion
Leukocytosis likely reactive
Increased bilirubin
CT abdomen pelvis unremarkable 04/08/2024
Conditions present prior admission:
Type 1 diabetes on an insulin pump
Tobacco abuse
Assessment and plan:
Clinically improved
Anion gap has closed
Renal function improved
No further nausea or vomiting
-
Continue insulin drip
Diabetes nurse practitioner consulted for recommendations on discharge insulin regimen. Appears the patient will not be able to use his insulin pump at halfway.
Continue IV fluids for now
Hopefully can advance diet today
-
Hyperkalemia/acute kidney injury likely volume deplete-resolved
Mcdonald in place with dark urine. Continue hydration IV and oral lipid
Renal function improving
IV fluids continue
Encourage oral intake
-
Positive troponins and abnormal EKG likely secondary to above
Denies chest pain 04/09/2024
Status post catheterization without significant coronary disease.
Cardiology correspondence reviewed.
-
N.p.o. for now, will advance diet today.
Head of the bed elevation
-
DVT prophylaxis with Lovenox
-
If able to discontinue insulin drip then we will transfer to telemetry. If transferred to telemetry critical care team will sign off for
Subjective Dataa
Subjective Data
Date of Service:
Date of Service: April 09, 2024
Chief Complaint: Bank Analyst Follow Up (Diabetes ketoacidosis)
Subjective:
Patient feels better
Denies nausea or vomiting
Denies abdominal pain
Remains on an insulin drip
Review of Systems
General: Fever (n)
Cardiopulmonary: Dyspnea (none at rest), Cough (n) and Sputum Production (n)
GI: Abdominal Pain (n) and Nausea (n)
Objective Data
Data Reviewed
Vital Signs / I&O / Oxygen:
Vital Signs
Temp Pulse Resp BP Pulse Ox
99.0 F 94 19 135/81 97
04/09/24 07:30 04/09/24 10:00 04/09/24 10:00 04/09/24 10:00 04/09/24 09:00
Intake and Output
04/08/24 04/09/24 04/10/24
06:59 06:59 06:59
Intake Total 3591 / 3743 610 / 610
Output Total 2195 / 2320 310 / 310
Balance 1396 / 1423 300 / 300
SaO2 97
Physical Exam
General: Comfortable
HEENT: Normocephalic
Cardiovascular: S1-S2
Respiratory: Clear and Non-Labored Respirations
GI: Soft and Non Distended
Neurology: Awake, Alert, AO x 3 and No Motor Deficits
Skin: Warm
Labs/Micro/Reports
Lab Data
04/09/24 04:16
04/09/24 14:00
Laboratory Results
04/08/24
12:44
PT 22.3 H
INR 1.98
APTT 36.0 H
[2024-04-09 10:40] LABS: Blood Urea Nitrogen 59 mg/dl (9-20); Calcium 9.9 mg/dl (8.4-10.2); Carbon Dioxide 20 mmol/L (22-30); Chloride 107 mmol/L (98-107); Estimated Creatinine Clearance 44 ml/min; Glucose 220 mg/dl (70-99); Potassium 4.5 mmol/L (3.5-5.1); Sodium 135 mmol/L (135-145); eGFR 45.78
[2024-04-09 11:08] LABS: Glucose - Point of Care 245 mg/dl (70-99)
--- NOTE | 2024-04-09 11:18 | PTCARENOTE ---
Echo completed. Diabetes ER MANAGER at bedside. Awaiting orders to transition patient off insulin gtt.
--- NOTE | 2024-04-09 11:27 | PN.DE.MGMTRT ---
Insulin Management
- -
04/09/2024 Diabetes Management Consult
Patient admitted 04/08 from [facility] with DKA. PMH type 1 diabetes, HLD, PAD osteoporosis, testicular cancer. Prior to incarceration 04/04 patient was using the OmniPod pump with G6 CGM, prior to admission from [facility]
patient was being given corrective insulin only. On admission AGAP 35.
On admission A1C 7%, cr 1.6, eGFR 45.78 today.
GAP is now 8, < 10 x 2; will transition to subcutaneous insulin.
Patient is awake alert and oriented in bed able to discuss diabetes management. He states he was diagnosed with type 1 diabetes at age 47, sees Dr. Miller, comp field case manager at [facility]. He states he has used the OmniPod for 2 to 2 1/2 years. He is
unable to access his device (per guard all personal items are removed from patient at intake) to provide pump settings. Patient is unable to remember any pump settings.
Will need to utilize basal bolus insulin now. Will start 15 units lantus now, insulin infusion off in 2 hours. Will start 25 units lantus @ hs. with novolog 5 units with each meal and moderate corrective insulin. Will check 3AM glucose. Will
reassess for needed adjustments.
Discharge back to facility he will need to continue basal bolus injections.
Diabetes History
- -
Type of Diabetes: 1
Pre-Admission Diabetes Regimen
04/08/24 04/08/24 04/08/24
12:41 15:14 15:38
Creatinine 2.9 H Cancelled 2.5 H
04/08/24 04/08/24 04/08/24
16:17 17:22 20:00
Creatinine 2.5 H 2.4 H Cancelled
04/08/24 04/09/24 04/09/24
21:43 01:44 04:15
Creatinine 1.9 H 1.7 H 1.6 H
04/09/24 04/09/24
09:56 14:00
Creatinine 1.6 H Cancelled
Lab Results
Hemoglobin A1c 7.0 % (4.0-5.6) H 04/08/24 15:14
Insulin Pump Settings
IP Diabetes Regimen
04/08/24 04/08/24 04/08/24
12:37 12:41 13:34
Glucose 810 H*
POC Glucose > 600 H* > 600 H*
04/08/24 04/08/24 04/08/24
15:14 15:20 15:38
Glucose Cancelled 646 H*
POC Glucose > 600 H*
04/08/24 04/08/24 04/08/24
16:14 16:17 16:17
Glucose 622 H* Cancelled
POC Glucose > 600 H*
04/08/24 04/08/24 04/08/24
17:16 17:22 17:22
Glucose 547 H* Cancelled
POC Glucose 567 H*
04/08/24 04/08/24 04/08/24
18:23 18:25 19:08
Glucose 444 H
POC Glucose 448 H 411 H
04/08/24 04/08/24 04/08/24
20:00 20:05 20:53
Glucose Cancelled
POC Glucose 442 H 371 H
04/08/24 04/08/24 04/08/24
21:43 22:01 23:00
Glucose 281 H
POC Glucose 264 H 270 H
04/08/24 04/09/24 04/09/24
23:55 01:03 01:44
Glucose 194 H
POC Glucose 224 H 224 H
04/09/24 04/09/24 04/09/24
01:59 03:01 04:07
Glucose
POC Glucose 202 H 230 H 212 H
04/09/24 04/09/24 04/09/24
04:15 05:01 05:53
Glucose 174 H
POC Glucose 229 H 203 H
04/09/24 04/09/24 04/09/24
07:01 08:01 08:59
Glucose
POC Glucose 189 H 181 H 212 H
04/09/24 04/09/24 04/09/24
09:55 09:56 10:56
Glucose 220 H
POC Glucose 210 H 245 H
04/09/24
14:00
Glucose Cancelled
POC Glucose
Patient Education
[2024-04-09] MEDS: LANTUS 0.15 UNITS SC (12:02)
--- NOTE | 2024-04-09 12:06 | PTCARENOTE ---
15 Lantus administered. Insulin drip and IVFs ordered to be turned off in 2 hours. 1800 diabetic diet ordered with sliding scale coverage once drip turned off.
[2024-04-09 12:08] LABS: Glucose - Point of Care 214 mg/dl (70-99)
[2024-04-09 13:07] LABS: Glucose - Point of Care 215 mg/dl (70-99)
--- NOTE | 2024-04-09 13:34 | W.PN.NEPH.PH ---
Today's Communication / Plan
-
- continue insulin gtt and fluids
Assessment/Plan
-
Assessment:
HAGMA
GYPSY
DKA
hyperkalemia
hypovolemia
Plan:
DKA c/b GYPSY
- s/p aggressive fluid resuscitation
- gap has now closed
- K has normalized
- insulin gtt continues for now
- Cr significantly improved, hopeful for full recovery of kidney function
-
-
Date of Service: April 09, 2024
CC / HPI / ROS
-
Chief Complaint:
GYPSY
History of Present Illness:
DKA, gluc >800 on initial presentation
HAGMA -- now closed s/p insulin gtt
Review of Systems:
feeling better today
Cr improving
excellent UOP
Labs
-
Labs:
WBC 18.0 10^3/uL (4.8-10.8) H 04/09/24 04:16
RBC 4.66 10^6/uL (4.70-6.10) L 04/09/24 04:16
Hgb 14.1 g/dL (13.0-18.0) 04/09/24 04:16
Hct 40.2 % (39.0-52.0) 04/09/24 04:16
Plt Count 232 10^3/uL (130-400) D 04/09/24 04:16
Sodium Cancelled 04/09/24 14:00
Potassium Cancelled 04/09/24 14:00
Chloride Cancelled 04/09/24 14:00
Carbon Dioxide Cancelled 04/09/24 14:00
BUN Cancelled 04/09/24 14:00
Creatinine Cancelled 04/09/24 14:00
eGFR Cancelled 04/09/24 14:00
Glucose Cancelled 04/09/24 14:00
Calcium Cancelled 04/09/24 14:00
Phosphorus 2.4 mg/dl (2.5-4.5) L 04/09/24 04:15
Albumin 4.5 g/dl (3.5-5.0) 04/08/24 12:41
Physical Exam
-
Vital Signs:
Vital Signs
Temp Pulse Resp BP Pulse Ox
97.8 F 93 15 93/80 95
04/09/24 11:07 04/09/24 13:00 04/09/24 13:00 04/09/24 13:00 04/09/24 12:00
Cardiovascular:: Regular rate and rhythm
Respiratory:: Bilateral: CTA
Lung Excursion:: Normal
Abdomen:: Nontender and Soft
Bowel Sounds:: Normal
Extremity Edema:: None: Bilateral:
[place] Catheter: No
--- NOTE | 2024-04-09 14:09 | PTCARENOTE ---
Insulin gtt and IVFs off. Lunch provided.
[2024-04-09] MEDS: NOVOLOG FLEXPEN 5 UNITS SC ×2 (14:10→18:14)
[2024-04-09] MEDS: NOVOLOG FLEXPEN-MODERATE RESISTANCE 1 UNITS SC ×2 (14:11→18:14)
[2024-04-09 14:19] LABS: Glucose - Point of Care 197 mg/dl (70-99)
[2024-04-09] MEDS: ZOFRAN 4 MG IV ×2 (14:19→22:23)
[2024-04-09] MEDS: FLUSH (NSS) 2 FLUSH IV (14:20)
--- NOTE | 2024-04-09 14:32 | PTCARENOTE ---
Patient vomited after a few bites of lunch. Zofran administered. Tolerating clears.
--- NOTE | 2024-04-09 14:35 | CM ---
CM following re: discharge planning.
Reviewed pt' chart, met with pt and 2 guards at bedside.
Pt is a 73 year old male, admitted with primary dx of DKA.
[facility] is admitted from [facility] and per guards, pt will return back there when medically stable.
[facility] nursing report: [phone]
Discharge instructions: [phone]
D/C plan: return back to [facility] when medically stable.
--- NOTE | 2024-04-09 14:51 | W.PN.HOSP.TC ---
Today's Communication/Plan
-
Stable for med surg
Assessment / Plan
Assessment / Plan
HPI: 73-year-old male with a past medical history of type 2 diabetes on insulin pump, hyperlipidemia, peripheral artery disease, and osteoporosis was sent from [facility] for possible ST elevation myocardial infarction. At that time, he did have nausea,
vomiting, chest pain. EKG showed possible ST elevation in inferior leads. Patient was taken to cardiac catheterization emergently, shows nonobstructive coronary artery disease. He was found to have severe diabetic ketoacidosis. Currently, his
chest pain and abdominal pain has resolved. Shortness of breath also resolved. No fever, no chills.
#Diabetic ketoacidosis
Appreciate table worker input, gap closed on IV insulin drip, IV fluids
Stable for med-surg
#Controlled type 1 diabetes
Hemoglobin A1c 7.0
Patient has an insulin pump, but he is not able to use it at [facility]
Appreciate diabetes nurse practitioner, continue insulin management as per diabetes nurse practitioner
#Leukocytosis
Patient is afebrile, no signs or symptoms of infection
Likely reactive, monitor
#Systemic inflammatory response syndrome with leukocytosis and tachycardia
Due to DKA, monitor
#Chest pain
Appreciate cardiology input, EKG changes likely caused by DKA
04/08/2024 cardiac catheterization shows nonobstructive coronary artery disease
Echo grossly normal
#Hyperkalemia
Resolved
#Acute kidney injury
Due to dehydration from DKA
Appreciate nephrology input, continue IVFs, avoid nephrotoxic drugs/NSAIDs, trend creatinine
#Pseudohyponatremia
From hyperglycemia, resolved
#Acute urinary retention
Mcdonald inserted 04/08
#Peripheral artery disease
Started aspirin, statin
DVT prophylaxis�subcu Lovenox
Full code
Total time spent to see the patient on the floor, examine the patient, review data and lab results, discuss treatment plan with patient, nursing staff around 51 minutes.
Physical Exam
General: No acute distress
HEENT: Normocephalic, Atraumatic, EOMI, MMM
Respiratory: Clear to Auscultation bilaterally
Cardiac: Normal S1/S2, Regular Rate and Rhythm
GI: Soft, Nontender, Nondistended, Normal Bowel Sounds
Extremities: No Clubbing, Cyanosis, or Edema
Neuro: Nonfocal/Grossly Intact
Psych: Calm, Cooperative
Derm: No Visible lesions
Anticipated Discharge: 24 - 48 hours
Subjective/Interval History
-
Date of Service: April 09, 2024
No chest pain, no abdominal pain. Patient vomited his meal. No fever.
Objective Data
-
Labs:
Laboratory Results
04/09/24 04/09/24 04/09/24
04:15 04:15 04:16
WBC 18.0 H
Hgb 14.1
Hct 40.2
Plt Count 232 D
Sodium 137
Potassium Cancelled 4.4
Chloride 107
Carbon Dioxide 21 L
BUN 63 H
Creatinine 1.6 H
Glucose 174 H
Calcium 9.9
04/09/24 04/09/24
09:56 14:00
WBC
Hgb
Hct
Plt Count
Sodium 135 Cancelled
Potassium 4.5 Cancelled
Chloride 107 Cancelled
Carbon Dioxide 20 L Cancelled
BUN 59 H Cancelled
Creatinine 1.6 H Cancelled
Glucose 220 H Cancelled
Calcium 9.9 Cancelled
Vital Signs:
Vital Signs
Temp Pulse Resp BP Pulse Ox
97.8 F 80 21 134/79 95
04/09/24 11:07 04/09/24 14:01 04/09/24 14:01 04/09/24 14:01 04/09/24 14:01
I&O
04/08/24 04/09/24 04/10/24
06:59 06:59 06:59
Intake Total 3591 / 3743 1069 / 1069
Output Total 2195 / 2320 505 / 505
Balance 1396 / 1423 564 / 564
--- NOTE | 2024-04-09 14:58 | PTCARENOTE ---
Patient downgraded to med/surg.
[2024-04-09] MEDS: NSS 1000 IV (15:06)
--- NOTE | 2024-04-09 15:15 | W.PN.UPDATE ---
Update Note
Progress Note Update
Insulin drip has been discontinued.
Tolerating diet.
Transition to MedSurg.
Critical care team will sign off.
[2024-04-09] MEDS: FLOMAX 0.4 MG PO (15:45)
--- NOTE | 2024-04-09 15:57 | PTCARENOTE ---
Report given to 3W RN. Patient to be transported to room 324 once cleaned.
[2024-04-09 16:43] LABS: Glucose - Point of Care 168 mg/dl (70-99)
[2024-04-09] MEDS: LOVENOX 40 MG SC (18:13)
[2024-04-09] MEDS: LIPITOR 40 MG PO (18:14)
[2024-04-09 21:03] LABS: Glucose - Point of Care 279 mg/dl (70-99)
[2024-04-09] MEDS: LANTUS 0.25 UNITS SC (21:20)
[2024-04-09] MEDS: PROTONIX IV 40 MG IV (21:28)
[2024-04-09] MEDS: NSS (PRESERVATIVE FREE) 10 ML IV (21:28)
--- NOTE | 2024-04-09 21:30 | PTCARENOTE ---
Pt complained of burning chest pain non-radiating to RN around 21:00. GLOBAL MANAGER (Dewayne) notified of patient complaint, Vitals showed BP 139/80, HR 105 SpO2 91% RA, ECG obtained and reviewed by GLOBAL MANAGER. Pt placed on 2L NC for comfort per GLOBAL MANAGER request and
ordered and administered IV protonix. GLOBAL MANAGER examined pt at bedside. Pt did also complain of nausea but feeling a bit better, will continue to monitor.
--- NOTE | 2024-04-09 22:37 | W.PN.UPDATE ---
Update Note
Progress Note Update
RN notified CREDIT COLLECTOR. Patient complaining of burning chest pain, mild shortness of breath. Patient seen and evaluated, stated having burning pain mid chest, non radiating. Stated he had vomiting episode earlier, and with mild nausea and hiccups. Stable
VS. EKG stable. will give one time IV Protonix 40 mg now. 139/80 RR 18, HR 105, 91-94%, Advised to place oxygen for comfort.
[2024-04-10 06:53] LABS: Blood Urea Nitrogen 48 mg/dl (9-20); Carbon Dioxide 18 mmol/L (22-30); Chloride 105 mmol/L (98-107); Estimated Creatinine Clearance 50 ml/min; Glucose 323 mg/dl (70-99); Magnesium 1.9 mg/dl (1.6-2.3); Phosphorus 2.4 mg/dl (2.5-4.5); Potassium 5.1 mmol/L (3.5-5.1); Sodium 133 mmol/L (135-145); eGFR 53.74
[2024-04-10 07:04] LABS: Hematocrit 40.8 % (39.0-52.0); Hemoglobin 14.1 g/dL (13.0-18.0); Mean Corp Hgb Conc. 34.6 g/dL (33.0-37.0); Mean Corpuscular Hgb 30.7 pg (27.0-31.0); Mean Corpuscular Volume 88.9 fL (80.0-94.0); Mean Platelet Volume 10.5 fL (7.4-10.4); Platelet Count 166 10^3/uL (130-400); Red Blood Cell Count 4.59 10^6/uL (4.70-6.10); Red Cell Dist. Width 12.7 % (11.5-14.5); White Blood Cell Count 7.5 10^3/uL (4.8-10.8)
[2024-04-10 07:19] LABS: Glucose - Point of Care 337 mg/dl (70-99)
[2024-04-10 07:58] VITALS: BP 132/79
--- NOTE | 2024-04-10 07:58 | PN.DE.MGMTRT ---
Insulin Management
- -
04/10/2024 Diabetes Management Consult Follow up
Patient admitted 04/08 from [facility] with DKA. PMH type 1 diabetes, HLD, PAD osteoporosis, testicular cancer. Prior to incarceration 04/04 patient was using the OmniPod pump with G6 CGM, prior to admission from [facility]
patient was being given corrective insulin only. On admission AGAP 35.
On admission A1C 7%, cr 1.6, eGFR 45.78 today.
04/09 GAP is now 8, < 10 x 2; transitioned to subcutaneous insulin.
Patient is awake alert and oriented in bed able to discuss diabetes management. He states he was diagnosed with type 1 diabetes at age 47, sees Dr. Miller, paper machine operator at [facility]. He states he has used the OmniPod with the DexCom G6 for 2 to
2 1/2 years. He is unable to access his device (per guard all personal items are removed from patient at intake) to provide pump settings. Patient is unable to remember any pump settings.
Will need to utilize basal bolus insulin now and on return to [facility].
Received 25 units lantus @ hs fasting glucose this AM 323. Will increase HS lantus to 35 units. AC novolog 5 units with each meal and moderate corrective insulin started with lunch. Glucose 279 @ hs. Will increase AC novolog to 8 units with
moderate corrective. 3AM glucose not obtained will order again tonight. Will reassess for needed adjustments.
Discharge back to facility he will need to continue basal bolus injections.
Diabetes History
- -
Type of Diabetes: 1
Pre-Admission Diabetes Regimen
04/09/24 04/10/24
09:56 05:53
Creatinine 1.6 H 1.4 H
Lab Results
Hemoglobin A1c 7.0 % (4.0-5.6) H 04/08/24 15:14
Insulin Pump Settings
IP Diabetes Regimen
04/09/24 04/09/24 04/09/24
08:01 08:59 09:55
Glucose
POC Glucose 181 H 212 H 210 H
04/09/24 04/09/24 04/09/24
09:56 10:56 11:57
Glucose 220 H
POC Glucose 245 H 214 H
04/09/24 04/09/24 04/09/24
12:55 14:05 16:41
Glucose
POC Glucose 215 H 197 H 168 H
04/09/24 04/10/24 04/10/24
21:01 05:53 07:18
Glucose 323 H
POC Glucose 279 H 337 H
Meal type: Dinner
Amount consumed: 85%
Patient Education
--- NOTE | 2024-04-10 08:38 | W.PN.HOSP.TC ---
Today's Communication/Plan
-
see bold
Assessment / Plan
Assessment / Plan
HPI: 73-year-old male with a past medical history of type 2 diabetes on insulin pump, hyperlipidemia, peripheral artery disease, and osteoporosis was sent from [facility] for possible ST elevation myocardial infarction. At that time, he did have nausea,
vomiting, chest pain. EKG showed possible ST elevation in inferior leads. Patient was taken to cardiac catheterization emergently, shows nonobstructive coronary artery disease. He was found to have severe diabetic ketoacidosis. Currently, his
chest pain and abdominal pain has resolved. Shortness of breath also resolved. No fever, no chills.
#Controlled type 1 diabetes
Hemoglobin A1c 7.0
Patient has an insulin pump, but he is not able to use it at [facility]
Appreciate diabetes nurse practitioner, continue insulin management as per diabetes nurse practitioner
#Diabetic ketoacidosis
Appreciate gun stock maker input, gap closed on IV insulin drip, IV fluids
Transferred out of ICU 04/10
#Nausea/vomiting
Continue supportive care
#Acute urinary retention
Mcdonald inserted 04/08
Started on Flomax
#Leukocytosis
Patient is afebrile, no signs or symptoms of infection
Resolved off of antibiotics
#Systemic inflammatory response syndrome with leukocytosis and tachycardia
Due to DKA, monitor
#Chest pain
Appreciate cardiology input, EKG changes likely caused by DKA
04/08/2024 cardiac catheterization shows nonobstructive coronary artery disease
Echo grossly normal
#Hyperkalemia
Resolved
#Acute kidney injury
Due to dehydration from DKA
Appreciate nephrology input, continue IVFs, avoid nephrotoxic drugs/NSAIDs, trend creatinine
#Hypophosphatemia
Replete
#Pseudohyponatremia
From hyperglycemia
#Peripheral artery disease
Started aspirin, statin
DVT prophylaxis�subcu Lovenox
Full code
Total time spent to see the patient on the floor, examine the patient, review data and lab results, discuss treatment plan with patient, nursing staff around 50 minutes.
Physical Exam
General: No acute distress
HEENT: Normocephalic, Atraumatic, EOMI, MMM
Respiratory: Clear to Auscultation bilaterally
Cardiac: Normal S1/S2, Regular Rate and Rhythm
GI: Soft, Nontender, Nondistended, Normal Bowel Sounds
Extremities: No Clubbing, Cyanosis, or Edema
Neuro: Nonfocal/Grossly Intact
Psych: Calm, Cooperative
Derm: No Visible lesions
Anticipated Discharge: Within 24 hours
Subjective/Interval History
-
Date of Service: April 10, 2024
Patient had some nausea and vomiting yesterday, resolved. He tolerated dinner and breakfast. No fever.
Objective Data
-
Labs:
Laboratory Results
04/10/24
05:53
WBC 7.5
Hgb 14.1
Hct 40.8
Plt Count 166 D
Sodium 133 L
Potassium 5.1
Chloride 105
Carbon Dioxide 18 L
BUN 48 H
Creatinine 1.4 H
Glucose 323 H
Calcium 10.0
Vital Signs:
Vital Signs
Temp Pulse Resp BP Pulse Ox
98.5 F 111 16 132/79 92
04/10/24 07:58 04/10/24 07:58 04/10/24 07:58 04/10/24 07:58 04/10/24 07:58
I&O
04/09/24 04/10/24 04/11/24
06:59 06:59 06:59
Intake Total 3591 / 3743 1988 / 1988
Output Total 2195 / 2320 1800 / 1800
Balance 1396 / 1423 189 / 189
--- NOTE | 2024-04-10 08:41 | CM ---
CM reviewed chart. Patient from [facility].
[facility] nursing report: [phone]
Discharge instructions: [phone]
D/C plan: return back to [facility] when medically stable.
[2024-04-10] MEDS: NOVOLOG FLEXPEN 8 UNITS SC ×2 (08:45→12:11)
[2024-04-10] MEDS: NOVOLOG FLEXPEN-MODERATE RESISTANCE 9 UNITS SC (08:46)
[2024-04-10] MEDS: ZOFRAN 4 MG IV (08:47)
[2024-04-10] MEDS: FLOMAX 0.4 MG PO (08:47)
[2024-04-10] MEDS: LOW STRENGTH ASPIRIN 81 MG PO (08:47)
[2024-04-10] MEDS: NEUTRA-PHOS POWDER PACKET 250 MG PO ×4 (10:08→21:31)
[2024-04-10 12:00] LABS: Glucose - Point of Care 272 mg/dl (70-99)
[2024-04-10] MEDS: NOVOLOG FLEXPEN-MODERATE RESISTANCE 3 UNITS SC (12:09)
--- NOTE | 2024-04-10 12:46 | W.PN.NEPH.PH ---
Today's Communication / Plan
-
follow BMP
Assessment/Plan
-
Assessment:
HAGMA
GYPSY
DKA
hyperkalemia
hypovolemia
Plan:
follow BMP
insulin per protocol
replete Phos
will sign off, please call with questions
-
-
Date of Service: April 10, 2024
CC / HPI / ROS
-
Chief Complaint:
GYPSY
History of Present Illness:
DKA resolved, nowon subc insulin
Phos low
GYPSY/Cr down to 1.4
Na low but corrects for hyperglycemia
Review of Systems:
feeling better today
no CP/SOB
Labs
-
Labs:
WBC 7.5 10^3/uL (4.8-10.8) 04/10/24 05:53
RBC 4.59 10^6/uL (4.70-6.10) L 04/10/24 05:53
Hgb 14.1 g/dL (13.0-18.0) 04/10/24 05:53
Hct 40.8 % (39.0-52.0) 04/10/24 05:53
Plt Count 166 10^3/uL (130-400) D 04/10/24 05:53
Sodium 133 mmol/L (135-145) L 04/10/24 05:53
Potassium 5.1 mmol/L (3.5-5.1) 04/10/24 05:53
Chloride 105 mmol/L (98-107) 04/10/24 05:53
Carbon Dioxide 18 mmol/L (22-30) L 04/10/24 05:53
BUN 48 mg/dl (9-20) H 04/10/24 05:53
Creatinine 1.4 mg/dL (0.7-1.3) H 04/10/24 05:53
eGFR 53.74 04/10/24 05:53
Glucose 323 mg/dl (70-99) H 04/10/24 05:53
Calcium 10.0 mg/dl (8.4-10.2) 04/10/24 05:53
Phosphorus 2.4 mg/dl (2.5-4.5) L 04/10/24 05:53
Albumin 4.5 g/dl (3.5-5.0) 04/08/24 12:41
Physical Exam
-
Vital Signs:
Vital Signs
Temp Pulse Resp BP Pulse Ox
98.5 F 111 16 132/79 92
04/10/24 07:58 04/10/24 07:58 04/10/24 07:58 04/10/24 07:58 04/10/24 12:04
Cardiovascular:: Regular rate and rhythm
Respiratory:: Bilateral: Coarse
Lung Excursion:: Normal
Abdomen:: Nontender and Soft
Bowel Sounds:: Normal
Extremity Edema:: None: Bilateral:
[2024-04-10 15:15] VITALS: BP 131/63
[2024-04-10 16:32] LABS: Glucose - Point of Care 158 mg/dl (70-99)
[2024-04-10] MEDS: LOVENOX 40 MG SC (17:36)
[2024-04-10] MEDS: LIPITOR 40 MG PO (17:37)
[2024-04-10] MEDS: NOVOLOG FLEXPEN-MODERATE RESISTANCE 1 UNITS SC (17:37)
[2024-04-10] MEDS: NOVOLOG FLEXPEN 10 UNITS SC (17:38)
[2024-04-10] MEDS: PROTONIX 40 MG PO (18:42)
[2024-04-10] MEDS: MAALOX 30 ML PO (18:42)
[2024-04-10 21:03] LABS: Glucose - Point of Care 104 mg/dl (70-99)
[2024-04-10] MEDS: PEPCID 20 MG PO (21:31)
[2024-04-10] MEDS: LANTUS 0.35 UNITS SC (21:40)
[2024-04-10 23:31] VITALS: BP 126/72
[2024-04-11] MEDS: TYLENOL 650 MG PO ×3 (02:04→15:02)
[2024-04-11 02:05] LABS: Glucose - Point of Care 188 mg/dl (70-99)
[2024-04-11] MEDS: MAALOX 30 ML PO ×3 (02:07→13:09)
[2024-04-11 06:37] LABS: Hematocrit 38.1 % (39.0-52.0); Mean Corp Hgb Conc. 34.1 g/dL (33.0-37.0); Mean Platelet Volume 10.5 fL (7.4-10.4); Platelet Count 164 10^3/uL (130-400); Red Blood Cell Count 4.33 10^6/uL (4.70-6.10); Red Cell Dist. Width 12.5 % (11.5-14.5); White Blood Cell Count 5.9 10^3/uL (4.8-10.8)
--- NOTE | 2024-04-11 07:05 | PN.DE.MGMTRT ---
Insulin Management
- -
04/11/2024 Diabetes Management Consult Follow up
Patient admitted 04/08 from [facility] with DKA. PMH type 1 diabetes, HLD, PAD osteoporosis, testicular cancer. Prior to incarceration 04/04 patient was using the OmniPod pump with G6 CGM, prior to admission from [facility]
patient was being given corrective insulin only. On admission AGAP 35.
On admission A1C 7%, cr 1.6, eGFR 45.78 today.
04/09 GAP is now 8, < 10 x 2; transitioned to subcutaneous insulin.
Patient is awake alert and oriented in bed able to discuss diabetes management. He states he was diagnosed with type 1 diabetes at age 47, sees Dr. Miller, travel pta at [facility]. He states he has used the OmniPod with the DexCom G6 for 2 to
2 1/2 years. He is unable to access his device (per guard all personal items are removed from patient at intake) to provide pump settings. Patient is unable to remember any pump settings.
Will need to utilize basal bolus insulin now and on return to long term.
04/10 AC novolog increased from 5 units to 10 units with moderate corrective insulin, will change moderate to low corrective. Glucose as high as 323 04/10, with
increased novolog HS glucose 104. Will continue 10 units novolog AC. HS lantus increased from 25 to 35 units. 2AM glucose 188. Fasting glucose 160.
Discussed insulin doses with patients nurse.
Discharge back to facility he will need to continue basal bolus injections.
Diabetes History
- -
Type of Diabetes: 1
Pre-Admission Diabetes Regimen
Lab Results
Hemoglobin A1c 7.0 % (4.0-5.6) H 04/08/24 15:14
Insulin Pump Settings
IP Diabetes Regimen
04/10/24 04/10/24 04/10/24
07:18 11:59 16:31
POC Glucose 337 H 272 H 158 H
04/10/24 04/11/24
21:02 02:03
POC Glucose 104 H 188 H
Patient Education
[2024-04-11 07:09] LABS: Glucose - Point of Care 178 mg/dl (70-99)
[2024-04-11 07:12] LABS: Blood Urea Nitrogen 31 mg/dl (9-20); Calcium 10.2 mg/dl (8.4-10.2); Carbon Dioxide 24 mmol/L (22-30); Chloride 106 mmol/L (98-107); Estimated Creatinine Clearance 64 ml/min; Glucose 160 mg/dl (70-99); Magnesium 1.8 mg/dl (1.6-2.3); Phosphorus 2.2 mg/dl (2.5-4.5); Potassium 4.1 mmol/L (3.5-5.1); Sodium 134 mmol/L (135-145); eGFR > 60.00
[2024-04-11 07:32] VITALS: BP 140/76
[2024-04-11] MEDS: PROTONIX 40 MG PO (07:40)
[2024-04-11] MEDS: FLOMAX 0.4 MG PO (07:40)
[2024-04-11] MEDS: LOW STRENGTH ASPIRIN 81 MG PO (07:40)
--- NOTE | 2024-04-11 07:59 | W.PN.HOSP.TC ---
Addendum entered and electronically signed by Jose Armando Soni MD 04/11/24 13:20:
Patient has type 1 diabetes, not type II.
Original Note:
Today's Communication/Plan
-
Increase phosphorus repletion
Discharge tomorrow
Assessment / Plan
Assessment / Plan
HPI: 73-year-old male with a past medical history of type 2 diabetes on insulin pump, hyperlipidemia, peripheral artery disease, and osteoporosis was sent from [facility] for possible ST elevation myocardial infarction. At that time, he did have nausea,
vomiting, chest pain. EKG showed possible ST elevation in inferior leads. Patient was taken to cardiac catheterization emergently, shows nonobstructive coronary artery disease. He was found to have severe diabetic ketoacidosis. Currently, his
chest pain and abdominal pain has resolved. Shortness of breath also resolved. No fever, no chills.
#Controlled type 1 diabetes
Hemoglobin A1c 7.0
Patient has an insulin pump, but he is not able to use it at [facility]
Appreciate diabetes nurse practitioner, continue insulin management as per diabetes nurse practitioner
#Diabetic ketoacidosis
Appreciate it director input, gap closed on IV insulin drip, IV fluids
Transferred out of ICU 04/10
#Reflux
Started on PPI, Pepcid
Continue Maalox as needed
#Nausea/vomiting
Continue supportive care
#Acute urinary retention
Mcdonald inserted 04/08, for removal today
Started on Flomax
#Leukocytosis
Patient is afebrile, no signs or symptoms of infection
Resolved off of antibiotics
#Systemic inflammatory response syndrome with leukocytosis and tachycardia
Due to DKA, monitor
#Chest pain
Appreciate cardiology input, EKG changes likely caused by DKA
04/08/2024 cardiac catheterization shows nonobstructive coronary artery disease
Echo grossly normal
#Hyperkalemia
Resolved
#Acute kidney injury
Due to dehydration from DKA
Appreciate nephrology input, avoid nephrotoxic drugs/NSAIDs, trend creatinine
Resolved, will discontinue IV fluids
#Hypophosphatemia
Replete
#Pseudohyponatremia
From hyperglycemia
#Peripheral artery disease
Started aspirin, statin
DVT prophylaxis�subcu Lovenox
Full code
Total time spent to see the patient on the floor, examine the patient, review data and lab results, discuss treatment plan with patient, nursing staff around 50 minutes.
Physical Exam
General: No acute distress
HEENT: Normocephalic, Atraumatic, EOMI, MMM
Respiratory: Clear to Auscultation bilaterally
Cardiac: Normal S1/S2, Regular Rate and Rhythm
GI: Soft, Nontender, Nondistended, Normal Bowel Sounds
Extremities: No Clubbing, Cyanosis, or Edema
Neuro: Nonfocal/Grossly Intact
Psych: Calm, Cooperative
Derm: No Visible lesions
Anticipated Discharge: Within 24 hours
Subjective/Interval History
-
Date of Service: April 11, 2024
Nausea/vomiting resolved. His reflux pain is also resolved. He is tolerating his diet. No fever.
Objective Data
-
Labs:
Laboratory Results
04/11/24 04/11/24
05:58 05:59
WBC 5.9
Hgb 13.0
Hct 38.1 L
Plt Count 164
Sodium 134 L
Potassium 4.1
Chloride 106
Carbon Dioxide 24
BUN 31 H
Creatinine 1.1
Glucose 160 H
Calcium 10.2
Vital Signs:
Vital Signs
Temp Pulse Resp BP Pulse Ox
98.1 F 81 16 140/76 95
04/11/24 07:32 04/11/24 07:32 04/11/24 07:32 04/11/24 07:32 04/11/24 07:32
I&O
04/10/24 04/11/24 04/12/24
06:59 06:59 06:59
Intake Total 1988 / 1988 1620 / 1620
Output Total 1800 / 1800 1300 / 1300
Balance 189 / 189 320 / 320
[2024-04-11] MEDS: NOVOLOG FLEXPEN 10 UNITS SC ×3 (08:19→17:15)
[2024-04-11] MEDS: NEUTRA-PHOS POWDER PACKET 500 MG PO ×4 (08:21→22:03)
[2024-04-11] MEDS: NOVOLOG FLEXPEN-LOW RESISTANCE 1 UNITS SC (08:22)
[2024-04-11 11:26] LABS: Glucose - Point of Care 84 mg/dl (70-99)
--- NOTE | 2024-04-11 11:51 | PN.CDI ---
CDI
- -
CDI:
Physician Documentation Request
Admit Date: 04/08/24 14:25
Dear Doctor Do,
Patient admitted with diabetic ketoacidosis.
04/11 PN, ' ....past medical history of type 2 diabetes....Controlled type 1 diabetes.'
04/10 Diabetic Management note, '....type 1 diabetes....'
Please clarify the in your note the type of diabetes being treated:
Type I DM
Type II DM
Other
Use of terms such as suspected, likely, concern for, or probable (associated with a specific diagnosis that is being evaluated, monitored, or treated as if it exists) are acceptable and can be coded in the inpatient setting, when documented at the
time of discharge.
Thank you,
Kanwal GALLOWAY,RN,CCDS
CDI Specialist
Available via tiger text
Please use your independent medical judgment in providing your response.
[2024-04-11] MEDS: NOVOLOG FLEXPEN-LOW RESISTANCE SC ×2 (13:11→16:32)
[2024-04-11 15:45] VITALS: BP 119/70
[2024-04-11 16:28] LABS: Glucose - Point of Care 88 mg/dl (70-99)
[2024-04-11] MEDS: LIPITOR 40 MG PO (17:15)
[2024-04-11] MEDS: LOVENOX 40 MG SC (17:15)
[2024-04-11 20:28] LABS: Glucose - Point of Care 104 mg/dl (70-99)
[2024-04-11 21:47] LABS: Glucose - Point of Care 78 mg/dl (70-99)
[2024-04-11] MEDS: LANTUS 0.35 UNITS SC (22:03)
[2024-04-11] MEDS: PEPCID 20 MG PO (22:03)
[2024-04-12] MEDS: TYLENOL 650 MG PO (01:45)
[2024-04-12 04:51] VITALS: BP 136/76
[2024-04-12 06:29] LABS: Hematocrit 41.9 % (39.0-52.0); Hemoglobin 14.7 g/dL (13.0-18.0); Mean Corp Hgb Conc. 35.1 g/dL (33.0-37.0); Mean Corpuscular Hgb 30.9 pg (27.0-31.0); Mean Corpuscular Volume 88.2 fL (80.0-94.0); Mean Platelet Volume 10.6 fL (7.4-10.4); Platelet Count 162 10^3/uL (130-400); Red Blood Cell Count 4.75 10^6/uL (4.70-6.10); Red Cell Dist. Width 12.1 % (11.5-14.5); White Blood Cell Count 5.5 10^3/uL (4.8-10.8)
[2024-04-12 06:45] LABS: Blood Urea Nitrogen 21 mg/dl (9-20); Calcium 10.3 mg/dl (8.4-10.2); Carbon Dioxide 27 mmol/L (22-30); Chloride 106 mmol/L (98-107); Estimated Creatinine Clearance 70 ml/min; Glucose 84 mg/dl (70-99); Magnesium 1.7 mg/dl (1.6-2.3); Phosphorus 2.3 mg/dl (2.5-4.5); Sodium 135 mmol/L (135-145); eGFR > 60.00
[2024-04-12 07:32] VITALS: BP 140/75
--- NOTE | 2024-04-12 07:37 | PN.DE.MGMTRT ---
Insulin Management
- -
04/12/2024: Diabetes Management f/u:
Patient admitted 04/[facility] with DKA. PMH type 1 diabetes, HLD, PAD osteoporosis, testicular cancer. Prior to incarceration 04/04 patient was using the OmniPod pump with G6 CGM, prior to admission from [facility]
patient was being given corrective insulin only. On admission AGAP 35, A1C 7%, Cr 1.6, eGFR 45.78 -->Cr 1.0, eGFR >60 today. Pt states he was diagnosed with T1DM at age 47, sees Yong Miller at [facility]. Reports he has used the OmniPod with the
DexCom G6 for 2 to 2 1/2 years. He is unable to access his device (per guard all personal items are removed from patient at intake) to provide pump settings. Patient is unable to remember any pump settings. Pt made aware that he will need to
utilize basal bolus insulin now and on return to residential.
Patient is awake alert and oriented in bed able to discuss diabetes management.
04/10 AC NovoLog increased from 5 units to 10 units and Lantus increased from 25 to 35 units.
04/11 pt noted for low normal glucose, range of 78 to 104, fasting 84 this AM
Will reduce Lantus to 30 units @HS and AC NovoLog to 8 units with moderate corrective insulin while pt remains in the hospital
Had lengthy d/w pt regarding his diet in residential; pt reports that he mainly consumes foods of high concentrated carbs and that there are no options for specialized diets like carb controlled diets for people with diabetes.
Discharge back to facility he will need to continue basal bolus injections.
Discharge Meds: Lantus 35 units @ HS and NovoLog 10 units AC
Diabetes History
- -
Type of Diabetes: 1
Pre-Admission Diabetes Regimen
04/12/24
06:09
Creatinine 1.0
Lab Results
Hemoglobin A1c 7.0 % (4.0-5.6) H 04/08/24 15:14
Insulin Pump Settings
IP Diabetes Regimen
04/11/24 04/11/24 04/11/24
11:23 16:26 20:27
Glucose
POC Glucose 84 88 104 H
04/11/24 04/12/24
21:46 06:09
Glucose 84
POC Glucose 78
Meal type: Dinner
Meal type: Lunch
Meal type: Breakfast
Amount consumed: 90%
Amount consumed: 100%
Amount consumed: 100%
Patient Education
[2024-04-12 08:07] LABS: Glucose - Point of Care 68 mg/dl (70-99)
--- NOTE | 2024-04-12 08:18 | W.PN.HOSP.TC ---
Today's Communication/Plan
-
Give IV phos
Discharge today
Assessment / Plan
Assessment / Plan
HPI: 73-year-old male with a past medical history of type 1 diabetes on insulin pump, hyperlipidemia, peripheral artery disease, and osteoporosis was sent from [facility] for possible ST elevation myocardial infarction. At that time, he did have nausea,
vomiting, chest pain. EKG showed possible ST elevation in inferior leads. Patient was taken to cardiac catheterization emergently, shows nonobstructive coronary artery disease. He was found to have severe diabetic ketoacidosis. Currently, his
chest pain and abdominal pain has resolved. Shortness of breath also resolved. No fever, no chills.
#Controlled type 1 diabetes
Hemoglobin A1c 7.0
Patient has an insulin pump, but he is not able to use it at [facility]
Appreciate diabetes nurse practitioner, continue insulin management as per diabetes nurse practitioner
Stable for dc today
#Diabetic ketoacidosis
Appreciate lean coach input, gap closed on IV insulin drip, IV fluids
Transferred out of ICU 04/10
#Reflux
Started on PPI, Pepcid
Continue Maalox as needed
#Nausea/vomiting
Continue supportive care
#Acute urinary retention
Mcdonald inserted 04/08, removed 04/11
Pt has been voiding fine
#Leukocytosis
Patient is afebrile, no signs or symptoms of infection
Resolved off of antibiotics
#Systemic inflammatory response syndrome with leukocytosis and tachycardia
Due to DKA, monitor
#Chest pain
Appreciate cardiology input, EKG changes likely caused by DKA
04/08/2024 cardiac catheterization shows nonobstructive coronary artery disease
Echo grossly normal
#Hyperkalemia
Resolved
#Acute kidney injury
Due to dehydration from DKA
Appreciate nephrology input, avoid nephrotoxic drugs/NSAIDs, trend creatinine
Resolved, will discontinue IV fluids
#Hypophosphatemia
Replete by IV and PO
#Pseudohyponatremia
From hyperglycemia
#Peripheral artery disease
Started aspirin, statin
DVT prophylaxis�subcu Lovenox
Full code
Physical Exam
General: No acute distress
HEENT: Normocephalic, Atraumatic, EOMI, MMM
Respiratory: Clear to Auscultation bilaterally
Cardiac: Normal S1/S2, Regular Rate and Rhythm
GI: Soft, Nontender, Nondistended, Normal Bowel Sounds
Extremities: No Clubbing, Cyanosis, or Edema
Neuro: Nonfocal/Grossly Intact
Psych: Calm, Cooperative
Derm: No Visible lesions
Anticipated Discharge: Today
Subjective/Interval History
-
Date of Service: April 11, 2024
No CP/SOB/palp. No fever, no vomiting.
Objective Data
-
Labs:
Laboratory Results
04/11/24 04/11/24
05:58 05:59
WBC 5.9
Hgb 13.0
Hct 38.1 L
Plt Count 164
Sodium 134 L
Potassium 4.1
Chloride 106
Carbon Dioxide 24
BUN 31 H
Creatinine 1.1
Glucose 160 H
Calcium 10.2
Vital Signs:
Vital Signs
Temp Pulse Resp BP Pulse Ox
98.1 F 81 16 140/76 95
04/11/24 07:32 04/11/24 07:32 04/11/24 07:32 04/11/24 07:32 04/11/24 09:49
I&O
04/10/24 04/11/24 04/12/24
06:59 06:59 06:59
Intake Total 1988 / 1988 1620 / 1620
Output Total 1800 / 1800 1300 / 1300
Balance 189 / 189 320 / 320
[2024-04-12 08:26] LABS: Glucose - Point of Care 104 mg/dl (70-99)
[2024-04-12] MEDS: NOVOLOG FLEXPEN-LOW RESISTANCE SC ×2 (09:13→16:51)
[2024-04-12] MEDS: FLOMAX 0.4 MG PO (09:13)
[2024-04-12] MEDS: LOW STRENGTH ASPIRIN 81 MG PO (09:13)
[2024-04-12] MEDS: NEUTRA-PHOS POWDER PACKET 500 MG PO (09:14)
[2024-04-12] MEDS: PROTONIX 40 MG PO (09:14)
[2024-04-12] MEDS: NOVOLOG FLEXPEN SC (09:19)
[2024-04-12] MEDS: SODIUM PHOSPHATE 255 MEQ IV (09:55)
[2024-04-12 10:31] LABS: Glucose - Point of Care 178 mg/dl (70-99)
[2024-04-12 12:11] LABS: Glucose - Point of Care 213 mg/dl (70-99)
[2024-04-12] MEDS: NOVOLOG FLEXPEN-LOW RESISTANCE 2 UNITS SC (12:20)
[2024-04-12] MEDS: NOVOLOG FLEXPEN 8 UNITS SC ×2 (12:21→17:30)
[2024-04-12] MEDS: NEUTRA-PHOS POWDER PACKET PO ×2 (13:31→17:44)
--- NOTE | 2024-04-12 13:45 | W.DCSUMMARY ---
Discharge Summary
Discharge Data
Date of Admission: 04/08/24
Date of Discharge: 04/12/24
-
Pending Results: No
Hospital Course
Discharge diagnosis:
Severe diabetic ketoacidosis
Chest pain from vomiting
Controlled type 1 diabetes
Acute kidney injury
Hyperkalemia
Acute urinary retention
Gastroesophageal reflux disease
Reactive leukocytosis
Hypophosphatemia
Peripheral artery disease
Consults: Cardiology, nephrology, cloth tester quality, diabetes nurse practitioner
Procedures:
04/08/2024 cardiac catheterization shows nonobstructive coronary artery disease
Hospital course:
73-year-old male with a past medical history of type 1 diabetes on insulin pump, and peripheral artery disease was admitted from [facility] for severe DKA. Patient had severe chest pain upon admission, with EKG changes
showing possible ST elevation. He underwent urgent cardiac catheterization showing nonobstructive coronary artery disease. Cardiology suspects that the EKG changes were due to severe diabetic ketoacidosis in conjunction with hyperkalemia. His
chest pain is likely from diffuse nausea and vomiting.
Patient was seen in conjunction with the cloth tester quality and nephrology. He was treated with IV insulin drip, aggressive IV fluids. His gap closed. He was transitioned to subcu insulin.
Patient had acute kidney injury and hyperkalemia. His hyperkalemia resolved with insulin administration. His creatinine normalized with IV fluids.
Patient continues to complain of reflux pain. He was started on Protonix 40 mg daily, Pepcid 20 mg at bedtime, and received Maalox as needed. His pain resolved. He can continue these medications upon discharge.
Patient also had transient urinary retention. He was treated with a Mcdonald for 3 days. Mcdonald was removed prior to discharge, and he was able to void.
Patient was seen in conjunction with the diabetes nurse practitioner. He is unable to use his insulin pump at the correction, which precipitated his DKA. The diabetes nurse practitioner recommends he be discharged on Lantus 30 units at bedtime,
NovoLog 8 units AC 3 times daily.
Patient is medically stable for discharge. It is very important that he receive his insulin regimen as prescribed. He needs to follow-up with the correction doctor in 2-3 days.
Disposition: Back to [facility]
Discharge planning: Required 35 minutes
Discharge Plan
-
Patient Disposition: Residential
Discharge Diagnosis/Procedures: Diabetic ketoacidosis, chest pain from vomiting, controlled type 1 diabetes, acute kidney injury, acute urinary retention, reactive leukocytosis
Condition: Good
Diet: Diabetic, Carb Controlled
Activity: As tolerated
Activity Restrictions/Additional Instructions:
Patient's phosphorus level in the hospital was on the low side. Please administer phosphorus supplements 3 times a day for 3 days.
It is very important that patient receives his insulin regimen as scheduled, Lantus 30 units at bedtime with aspart 8 units AC 3 times daily.
Follow-up with the physician at [facility] in 2-3 days.
Referrals:
[facility],Facility [Family Provider] - in two to three days
Prescriptions:
New
atorvastatin 40 mg Tablet
40 mg PO QPM Qty: 0 0RF
acetaminophen 325 mg Tablet
650 mg PO Q6HPRN PRN (Reason: mild pain/ fever>100.5F) Qty: 0 0RF
famotidine 20 mg Tablet
20 mg PO HS Qty: 0 0RF
pantoprazole 40 mg Tablet,Delayed Release (Dr/Ec)
40 mg PO DAILY Qty: 0 0RF
aspirin 81 mg Tablet,Chewable
81 mg PO DAILY Qty: 0 0RF
alum-mag hydroxide-simeth [Antacid-Antigas] 200-200-20 mg/5 mL Suspension
30 ml PO QIDPRN PRN (Reason: dyspepsia) Qty: 0 0RF
insulin aspart U-100 100 unit/mL (3 mL) Insulin Pen
8 unit SC AC Qty: 0 0RF
potassium, sodium phosphates [Phosphorous Supplement] 280-160-250 mg Powder In Packet
1 packet PO PCHS 3 Days Qty: 0 0RF
Insulin Glargine Lantus [Lantus] 30 UNITS
Subcutaneous Insulin Syringe [Syringe-Insulin] 0 UNIT
As Directed mls/hr SC HS
Ordered By: Jose Armando Soni MD
Last Taken: 04/11/24 22:03 0.35 mls
Discharge Orders:
Discharge Patient (As Directed); Ordered 04/12/24
Ordered By: Jose Armando Soni
Discharge Date and Time
Discharge Date/Time: 04/12/24 20:35
Print Language: LATVIAN
[2024-04-12 14:03] LABS: Glucose - Point of Care 205 mg/dl (70-99)
[2024-04-12 15:00] VITALS: BP 111/69
[2024-04-12 15:53] LABS: Phosphorus 2.5 mg/dl (2.5-4.5)
--- NOTE | 2024-04-12 16:04 | CM ---
Plan: discharge today; will return to [facility] nursing report: #[phone]
Discharge instructions: #[phone]
[2024-04-12 16:47] LABS: Glucose - Point of Care 123 mg/dl (70-99)
[2024-04-12] MEDS: LIPITOR 40 MG PO (17:29)
[2024-04-12] MEDS: LOVENOX 40 MG SC (17:29)
== END 2024-04-12 20:35 | DRG 638 ==
LOC: 3 WEST ACU 14:25
PROVIDERS: Nurse Practitioner; ADMITTING PHYSICIAN Family Medicine; CONSULT PHYSICIAN Internal Medicine Critical Care Medicine; CONSULT PHYSICIAN Student in an Organized Health Care Education/Training Program; EMERGENCY PHYSICIAN Emergency Medicine; OTHER PHYSICIAN Internal Medicine Cardiovascular Disease
DX: E10.10 Type 1 diabetes mellitus with ketoacidosis without coma (principal); N17.9 Acute kidney failure, unspecified; R65.10 Systemic inflammatory response syndrome (SIRS) of non-infectious origin without acute organ dysfunction; E87.5 Hyperkalemia; R33.9 Retention of urine, unspecified; K21.9 Gastro-esophageal reflux disease without esophagitis; E83.39 Other disorders of phosphorus metabolism; E10.51 Type 1 diabetes mellitus with diabetic peripheral angiopathy without gangrene; Z96.41 Presence of insulin pump (external) (internal); E78.5 Hyperlipidemia, unspecified; M81.0 Age-related osteoporosis without current pathological fracture; E86.0 Dehydration; Z79.4 Long term (current) use of insulin
CPT/HCPCS: 71045; 74177; 80048; 80053; 82010; 82805; 82947; 82962; 83036; 83735; 84100; 84132; 84484; 85025; 85027; 85610; 85730; 87070; 93005; 93306; 93458; 99291; C1760; C1894; Q9967